=== PATIENT | male | born 1995 | race Caucasian/White ===

== ENCOUNTER → 2016-05-01 | Outpatient (CLI) | payer BC, OTHER ==
[~2016-05-01] MED LIST: BUSP30TA2 PO; ESCI1TAB10 PO; INSDGI SC; INSUINJ14 SC; LAMO200T38 PO; LOSA50TA6 PO; NRN800 PO; QUET200T2 PO
[2016-05-01 17:15] LABS: BASO % 0.2 %; BASO ABS # 0.02 K/uL (0-0.2); COMPLETE YES; EOS % 0.4 %; HEMATOCRIT 42.3 % (42-52); IG% 0.2 %; LYMPH % 22.9 %; LYMPH ABS # 2.23 K/uL (1.2-3.4); MEAN CORPUSCULAR HEMOGLOBIN 30.9 pg (25-34); MEAN CORPUSCULAR HGB CONC 35.9 g/dl (32-36); MEAN PLATELET VOLUME 11.9 fL (7.4-10.4); MONO % 5.8 %; NEUT % 70.5 %; PLATELET COUNT 255 K/uL (130-400); RED BLOOD COUNT 4.92 M/uL (4.7-6.1); WHITE BLOOD COUNT 9.73 K/uL (4.8-10.8)
[2016-05-01 17:31] LABS: URINE APPEARANCE CLEAR (CLEAR); URINE BILIRUBIN NEG (NEG); URINE COLOR YELLOW; URINE EPITHELIAL CELL AUTO 0-5 /lpf (0-5); URINE NITRITE NEG (NEG); URINE SPECIFIC GRAVITY 1.017 (1.000-1.030); UROBILINOGEN NEG (NEG)
[2016-05-01 17:47] LABS: MANUAL MICROSCOPIC REQUIRED? NO; REVIEW REQ? NO
[2016-05-01 19:40] LABS: ALT/SGPT 26 U/L (12-78); AST/SGOT 23 U/L (15-37); BLOOD UREA NITROGEN 14 mg/dl (7-18); BUN/CREATININE RATIO 12.8 (10-20); CALCIUM 8.9 mg/dl (8.5-10.1); CARBON DIOXIDE 27 mmol/L (21-32); CHLORIDE 103 mmol/L (98-107); GLUCOSE 185 mg/dl (70-99); POTASSIUM 4.2 mmol/L (3.5-5.1); SODIUM 142 mmol/L (136-145)
[2016-05-01 19:42] LABS: ALB/GLOB RATIO 1.2 (0.9-2); ALKALINE PHOSPHATASE 60 U/L (45-117); PHOSPHORUS 3.3 mg/dl (2.5-4.9)
[2016-05-01 19:56] LABS: URINE PROTIEN/CREAT RATIO 0.1 (0-0.2); URINE TOTAL PROTEIN 6.2 mg/dl (0-11.9)
== END | disposition home or self-care (01) ==
LOC: C.LABBC 12:11
PROVIDERS: ATTEND Internal Medicine Nephrology
DX: Z79.899 Other long term (current) drug therapy (principal); N18.1 Chronic kidney disease, stage 1; I10 Essential (primary) hypertension; I95.1 Orthostatic hypotension; F31.9 Bipolar disorder, unspecified; E55.9 Vitamin D deficiency, unspecified

== ENCOUNTER → 2016-07-07 | Outpatient (CLI) | payer BC, OTHER ==
[2016-07-07 13:32] LABS: ESTIMATED AVERAGE GLUCOSE 157 mg/dl; HA1C FLAG Normal (Normal)
[2016-07-07 14:03] LABS: CHOLESTEROL/HDL RATIO 2.7; THYROID STIMULATING HORMONE 0.976 uIu/ml (0.300-4.500)
== END | disposition home or self-care (01) ==
LOC: C.LAB1850 12:26
PROVIDERS: ATTEND Internal Medicine Endocrinology, Diabetes & Metabolism
DX: E55.9 Vitamin D deficiency, unspecified (principal); E10.9 Type 1 diabetes mellitus without complications

== ENCOUNTER → 2016-08-01 | Outpatient (CLI) | payer BC, OTHER ==
[2016-08-01 15:02] LABS: URINE APPEARANCE CLEAR (CLEAR); URINE BILIRUBIN NEG (NEG); URINE COLOR YELLOW; URINE NITRITE NEG (NEG); URINE PH 6.5 (4.5-7.5); URINE SPECIFIC GRAVITY 1.021 (1.000-1.030); UROBILINOGEN NEG (NEG)
[2016-08-01 15:04] LABS: BLOOD UREA NITROGEN 12 mg/dl (7-18); BUN/CREATININE RATIO 13.1 (10-20); CARBON DIOXIDE 30 mmol/L (21-32); CHLORIDE 107 mmol/L (98-107); CREATININE 0.88 mg/dl (0.60-1.40); GLUCOSE 151 mg/dl (70-99); SODIUM 143 mmol/L (136-145)
[2016-08-01 15:10] LABS: MANUAL MICROSCOPIC REQUIRED? NO; REVIEW REQ? NO
== END | disposition home or self-care (01) ==
LOC: C.LABBC 10:25
PROVIDERS: ATTEND Internal Medicine Endocrinology, Diabetes & Metabolism
DX: E23.2 Diabetes insipidus (principal); R63.1 Polydipsia; R35.8 Other polyuria

== ENCOUNTER → 2016-10-06 | Outpatient (CLI) | payer BC, OTHER ==
[2016-10-07 06:06] LABS: ESTIMATED AVERAGE GLUCOSE 146 mg/dl; HA1C FLAG Normal (Normal)
== END | disposition home or self-care (01) ==
LOC: C.LAB1850 13:13
PROVIDERS: ATTEND Internal Medicine Endocrinology, Diabetes & Metabolism
DX: E10.9 Type 1 diabetes mellitus without complications (principal)

== ENCOUNTER → 2016-10-30 | Outpatient (CLI) | payer BC, OTHER ==
[2016-10-30 17:09] LABS: BASO % 0.2 %; BASO ABS # 0.01 K/uL (0-0.2); COMPLETE YES; EOS % 1.3 %; IG% 0.3 %; LYMPH % 35.7 %; LYMPH ABS # 2.16 K/uL (1.2-3.4); MEAN CELL VOLUME 86.8 fL (80-100); MEAN CORPUSCULAR HEMOGLOBIN 30.6 pg (25-34); MEAN CORPUSCULAR HGB CONC 35.2 g/dl (32-36); MONO % 9.8 %; NEUT % 52.7 %; PLATELET COUNT 274 K/uL (130-400); WHITE BLOOD COUNT 6.05 K/uL (4.8-10.8)
[2016-10-30 17:26] LABS: URINE TOTAL PROTEIN < 5.0 mg/dl (0-11.9)
[2016-10-30 17:29] LABS: ALT/SGPT 29 U/L (12-78); BLOOD UREA NITROGEN 9 mg/dl (7-18); BUN/CREATININE RATIO 9.6 (10-20); CALCIUM 8.7 mg/dl (8.5-10.1); CARBON DIOXIDE 28 mmol/L (21-32); CHLORIDE 103 mmol/L (98-107); CREATININE 0.93 mg/dl (0.60-1.40); GLUCOSE 158 mg/dl (70-99); POTASSIUM 3.8 mmol/L (3.5-5.1); SODIUM 140 mmol/L (136-145)
[2016-10-30 17:39] LABS: ALB/GLOB RATIO 1.1 (0.9-2); ALKALINE PHOSPHATASE 52 U/L (45-117); AST/SGOT 19 U/L (15-37)
[2016-10-30 17:40] LABS: URINE APPEARANCE CLEAR (CLEAR); URINE BILIRUBIN NEG (NEG); URINE COLOR YELLOW; URINE NITRITE NEG (NEG); URINE SPECIFIC GRAVITY 1.009 (1.000-1.030); UROBILINOGEN NEG (NEG)
[2016-10-30 17:56] LABS: MANUAL MICROSCOPIC REQUIRED? YES; REVIEW REQ? NO
[2016-10-30 18:18] LABS: URINE BACTERIA NEG (NEG); URINE RBC 0-4 /hpf (0-4); URINE WBC 0 /hpf (0-5)
== END | disposition home or self-care (01) ==
LOC: C.LABBC 12:09
PROVIDERS: ATTEND Internal Medicine Endocrinology, Diabetes & Metabolism
DX: R63.1 Polydipsia (principal); R35.8 Other polyuria; N18.1 Chronic kidney disease, stage 1; E55.9 Vitamin D deficiency, unspecified; I95.1 Orthostatic hypotension

== ENCOUNTER → 2016-11-05 | Day surgery (SDC) | payer BC, OTHER ==
[2016-11-05] VITALS (10 sets, daily range): BP systolic 97–123; BP diastolic 58–82; PULSE 66–80; TEMP 36.3–36.8; O2SAT 96–98; Ht 177.8 cm; Wt 87.8 kg
[~2016-11-05] VITALS: Ht 177.8 cm; Wt 87.8 kg
[2016-11-05 08:19] LABS: ISTAT CREATININE 1.1 mg/dl (0.6-1.3); ISTAT IONIZED CALCIUM 1.12 mmol/l (1.12-1.32)
[2016-11-05 09:17] LABS: ISTAT CREATININE 1.1 mg/dl (0.6-1.3); ISTAT HEMOGLOBIN 15.3 g/dl (14.0-18.0); ISTAT IONIZED CALCIUM 1.18 mmol/l (1.12-1.32)
[2016-11-05 11:15] LABS: ISTAT HEMOGLOBIN 15.6 g/dl (14.0-18.0); ISTAT IONIZED CALCIUM 1.2 mmol/l (1.12-1.32)
[2016-11-05 11:15] LABS: ISTAT IONIZED CALCIUM 1.2 mmol/l (1.12-1.32)
[2016-11-05 12:15] LABS: BUN/CREATININE RATIO 20.8 (10-20); CALCIUM 9.1 mg/dl (8.5-10.1); CREATININE 1.1 mg/dl (0.60-1.40); POTASSIUM 4.2 mmol/L (3.5-5.1)
[2016-11-05 12:20] LABS: ISTAT HEMOGLOBIN 15.6 g/dl (14.0-18.0); ISTAT IONIZED CALCIUM 1.18 mmol/l (1.12-1.32)
[2016-11-05 15:21] LABS: ISTAT HEMOGLOBIN 15.6 g/dl (14.0-18.0); ISTAT IONIZED CALCIUM 1.18 mmol/l (1.12-1.32)
[2016-11-05 15:21] LABS: ISTAT HEMOGLOBIN 15.6 g/dl (14.0-18.0); ISTAT IONIZED CALCIUM 1.2 mmol/l (1.12-1.32)
[2016-11-05 15:21] LABS: ISTAT HEMOGLOBIN 15.6 g/dl (14.0-18.0); ISTAT IONIZED CALCIUM 1.17 mmol/l (1.12-1.32)
[2016-11-05 16:24] LABS: ISTAT IONIZED CALCIUM 1.18 mmol/l (1.12-1.32)
[2016-11-05 16:28] LABS: BUN/CREATININE RATIO 19.5 (10-20); CALCIUM 9.4 mg/dl (8.5-10.1); CREATININE 0.97 mg/dl (0.60-1.40); POTASSIUM 4.9 mmol/L (3.5-5.1)
[2016-11-05 17:10] LABS: ISTAT HEMOGLOBIN 16.3 g/dl (14.0-18.0); ISTAT IONIZED CALCIUM 1.15 mmol/l (1.12-1.32)
== END | disposition home or self-care (01) ==
LOC: C.MTU 06:56
PROVIDERS: ATTEND Internal Medicine Endocrinology, Diabetes & Metabolism
DX: E10.9 Type 1 diabetes mellitus without complications (principal); Z79.4 Long term (current) use of insulin; I95.1 Orthostatic hypotension; R35.8 Other polyuria; R63.1 Polydipsia

== ENCOUNTER → 2016-11-26 | Outpatient (CLI) | payer BC, OTHER ==
[~2016-11-26] MED LIST changes: -LOSA50TA6 PO; -QUET200T2 PO
--- NOTE | 2016-11-26 14:20 | DIAGNOSTIC IMAGING REPORT ---
CHEST 2 VIEWS ROUTINE CLINICAL HISTORY: ASTHMA,COUGH COMPARISON STUDY: Chest radiograph January 04, [address] December 30, 2015. FINDINGS: Lung volumes are normal. No pneumothorax or pleural effusion is present. Pulmonary vascularity is normal. Cardiomediastinal silhouette is normal. There is no consolidation to suggest pneumonia. There is no evidence of pneumomediastinum. IMPRESSION: No acute cardiopulmonary findings. Electronically signed by: Saurabh Callaway M.D. 11/26/2016 2:19 PM Dictated Date/Time: 11/26/2016 2:18 PM
[2016-11-26 16:02] LABS: BLOOD UREA NITROGEN 6 mg/dl (7-18); BUN/CREATININE RATIO 7.5 (10-20); CALCIUM 8.7 mg/dl (8.5-10.1); CARBON DIOXIDE 30 mmol/L (21-32); CHLORIDE 107 mmol/L (98-107); CREATININE 0.83 mg/dl (0.60-1.40); GLUCOSE 74 mg/dl (70-99); POTASSIUM 4.1 mmol/L (3.5-5.1); SODIUM 141 mmol/L (136-145)
[2016-11-26 16:07] LABS: FERRITIN 142.4 ng/ml (8.0-388.0)
[2016-11-27 06:12] LABS: ESTIMATED AVERAGE GLUCOSE 163 mg/dl; HA1C FLAG Normal (Normal)
== END | disposition home or self-care (01) ==
LOC: C.RAD1850 14:09
PROVIDERS: ATTEND Physician Assistant
DX: R53.83 Other fatigue (principal); E10.9 Type 1 diabetes mellitus without complications; R05 Cough; J45.909 Unspecified asthma, uncomplicated

== ENCOUNTER → 2017-01-19 | Outpatient (CLI) | payer BC, OTHER ==
[~2017-01-19] MED LIST changes: +GADAVIST IV PRN
--- NOTE | 2017-01-19 17:34 | DIAGNOSTIC IMAGING REPORT ---
MRI OF THE BRAIN AND PITUITARY WITH AND WITHOUT CLINICAL HISTORY: Pituitary diabetes insipidus. COMPARISON STUDY: Head CT July 26, 2011. TECHNIQUE: Utilizing a 1.5 Eri magnet and dedicated coil, multiplanar, multiecho imaging of the brain was performed pre and postcontrast administration with imaging through the pituitary gland. Injection of 9 cc of Gadavist IV was uneventful. Post contrast imaging was performed utilizing dynamic enhancement. FINDINGS: There are no areas of restricted diffusion. No acute intracranial hemorrhage, midline shift or mass effect is present. Ventricular system is normal. Basilar cisterns are patent. There are no extra-axial collections. Flow-voids for the major intracranial vessels are present. There is no intracranial mass or pathologic enhancement. The optic chiasm is normal. No pituitary gland lesion is identified. Infundibulum is midline. No suprasellar mass is identified. Calvarial signal is normal. Orbits are unremarkable. Sinuses are clear. IMPRESSION: Unremarkable MRI of the brain and pituitary gland. No pituitary gland lesion. No sellar/suprasellar abnormality. Electronically signed by: Saurabh Callaway M.D. 01/19/2017 5:33 PM Dictated Date/Time: 01/19/2017 5:16 PM
== END | disposition home or self-care (01) ==
LOC: C.MRI 14:58
PROVIDERS: ATTEND Internal Medicine Endocrinology, Diabetes & Metabolism
DX: E23.2 Diabetes insipidus (principal)

== ENCOUNTER → 2017-05-01 | Outpatient (CLI) | payer OTHER ==
[~2017-05-01] MED LIST changes: -GADAVIST IV PRN; +LAMO200T35 PO; -LAMO200T38 PO
[2017-05-01 16:51] LABS: HEMATOCRIT 41.8 % (42-52); HEMOGLOBIN 15.1 g/dL (14.0-18.0); MEAN CELL VOLUME 86.9 fL (80-100); MEAN CORPUSCULAR HEMOGLOBIN 31.4 pg (25-34); MEAN CORPUSCULAR HGB CONC 36.1 g/dl (32-36); MEAN PLATELET VOLUME 11.1 fL (7.4-10.4); PLATELET COUNT 287 K/uL (130-400); RED CELL DISTRIBUTION WIDTH CV 12.8 % (11.5-14.5); RED CELL DISTRIBUTION WIDTH SD 41.2 fL (36.4-46.3); WHITE BLOOD COUNT 5.54 K/uL (4.8-10.8)
[2017-05-01 17:10] LABS: ALBUMIN 3.8 gm/dl (3.4-5.0); ALT/SGPT 36 U/L (12-78); AST/SGOT 20 U/L (15-37); BLOOD UREA NITROGEN 21 mg/dl (7-18); CALCIUM 8.9 mg/dl (8.5-10.1); CARBON DIOXIDE 26 mmol/L (21-32); CREATININE 0.98 mg/dl (0.60-1.40); GLUCOSE 123 mg/dl (70-99); POTASSIUM 4.1 mmol/L (3.5-5.1); SODIUM 135 mmol/L (136-145); TOTAL PROTEIN 7.6 gm/dl (6.4-8.2)
[2017-05-01 17:13] LABS: CREATININE RANDOM URINE 74.3 mg/dl
[2017-05-01 17:21] LABS: ALKALINE PHOSPHATASE 58 U/L (45-117); CHOLESTEROL 134 mg/dl (0-200); LDL CHOLESTEROL CALCULATED 74 mg/dl
[2017-05-02 06:51] LABS: HEMOGLOBIN A1C 6.8 % (4.5-5.6)
== END | disposition home or self-care (01) ==
LOC: C.LABBC 13:47
PROVIDERS: ATTEND Internal Medicine Nephrology
DX: N18.1 Chronic kidney disease, stage 1 (principal); I10 Essential (primary) hypertension; R80.9 Proteinuria, unspecified; E10.9 Type 1 diabetes mellitus without complications; R00.0 Tachycardia, unspecified; E55.9 Vitamin D deficiency, unspecified

== ENCOUNTER → 2017-08-26 | Outpatient (CLI) | payer OTHER | END | disposition home or self-care (01) | LOC: C.LAB1850 14:48 | PROVIDERS: ATTEND Psychiatry & Neurology Psychiatry | DX: Z51.81 Encounter for therapeutic drug level monitoring (principal); Z79.899 Other long term (current) drug therapy ==